=== PATIENT | female | born 1980 | race Caucasian/White ===

== ENCOUNTER 2024-06-29 13:37 | Observation (INO) ==
--- NOTE | 2024-06-29 13:51 | Emergency Department Note ---
Impression & Plan Hypertensive urgency, Chest pain, SOB (shortness of breath), Headache ED Provider Note CHIEF COMPLAINT: High blood pressure HISTORY OF PRESENTING ILLNESS: This 43-year-old female patient presents to the emergency department for evaluation of elevated blood pressure. The patient states that she woke up at 4 AM with a headache. She then developed a nosebleed. She was able to get the nosebleed to stop on her own. She continued with a headache, but was still able to go to work. While at work she developed dizziness, shortness of breath, and chest pain/heaviness along with the headache. She was also having some intermittent blurry vision behind the right eye. There is a lot of pressure behind her eyes from the headache as well. She checked her blood pressure and it was 188/110. She checked her blood pressure a couple of other times and it was still significantly elevated. She then left work to come to the ER. She denies any previous personal cardiac history. She had some high blood pressure from stress while from her , but no longer on medication. The patient has a history of MTHFR and had to be on aspirin during her . She is not currently on any aspirin or blood thinners. She is currently on Mirena and does not normally get her periods, but she did start spotting yesterday. She is sexually active right now. Not using any protection other than the Mirena. She denies any concerns for STIs. She has a family history of MIs - maternal grandmother with [place] and CHF, paternal grandmother with HTN and DM, mother with HTN and hypothyroidism. The patient denies any tobacco use or vaping. No problems with her cholesterol per patient. No personal history of diabetes. REVIEW OF SYSTEMS: See HPI for pertinent positives and pertinent negatives. ALLERGIES: NKDA MEDICATIONS: Lexapro 10 mg, Prazosin 2 mg, Mirena PAST MEDICAL HISTORY: Anxiety, Nightmares, Heavy periods, MTHFR PHYSICAL EXAM: VITALS: Vitals are noted on the nurse's note and reviewed by myself. GENERAL: No acute distress, non-diaphoretic. SKIN: Capillary reflex less than 2 seconds. HEAD: No scalp tenderness. No step-offs felt. EARS: Bilateral external auditory canals clear. Bilateral tympanic membranes pearly graham without erythema or effusion. No hemotympanum. No salinas sign. No mastoid tenderness. EYES: Pupils equal round and reactive to light and accommodation. Conjunctivae without injection, sclerae without icterus. Extraocular movements intact without pain. No nystagmus. NOSE: Patent, turbinates without inflammation or discharge. No sinus tenderness. No septal hematoma or bleeding. FACE: No facial bone tenderness. Full range of motion of the jaw without tenderness. No facial droop. MOUTH: Mucous membranes moist. Uvula midline. Airway patent. Tongue does not deviate. NECK: Supple without nuchal rigidity. Cervical spine is nontender. Full range of motion of the neck without tenderness and normal strength. HEART: Regular rate and rhythm without murmurs gallops or rubs. LUNGS: Clear to auscultation bilaterally without wheezes, rales or rhonchi. No retractions or accessory muscle use. No chest wall tenderness. ABDOMEN: Positive bowel sounds x 4. Normal tympanic percussion. Soft, nontender to palpation. No masses or hepatosplenomegaly. No guarding or rebound tenderness. No focal RLQ or LLQ tenderness. MUSCULOSKELETAL: Full range of motion of the bilateral upper and lower extremities. Strength 5/5 and equal bilaterally in the upper and lower extremities. Peripheral pulses 2+. NEURO: Patient was alert and oriented to person place and time. Normal mental status exam. Normal sensation to light and sharp touch. No focal neurological deficits. DIFFERENTIAL DIAGNOSIS: The differential diagnosis includes acute intracranial bleed, CVA, postural headache, meningitis, encephalitis, mass or mass effect, sinusitis, infection, temporal arteritis, trigeminal neuralgia, pseudotumor cerebri, tension headache, cluster headache, carbon monoxide exposure, migraine, angina, [place], pericarditis, myocarditis, aortic dissection, pleurisy, pneumothorax, PE, pneumonia, pneumomediastinum, esophagitis, esophageal spasm, GERD, perforated esophagus, perforated duodenal/gastric ulcer, pancreatitis, cholecystitis, costochondritis, musculoskeletal, bronchitis, URI, or others. ED COURSE AND MEDICAL DECISION MAKING: MEDICATIONS GIVEN: 1 L normal saline solution bolus. Tylenol 1000 mg IV. Labetalol 10 mg IV. MONITOR: Continuous monitoring engineer: Order was placed for continuous monitoring engineer. Patient was placed on the monitoring engineer and continuous pulse ox. Patient was noted to be in normal sinus rhythm at an initial rate of 80 bpm per my interpretation. EKG: EKG was interpreted by myself and Dr. Mccallum as normal sinus rhythm at 67 bpm with a left bundle branch block and some ST changes in V1, V2, and V3, but not meeting Sgarbossa criteria for acute [place] or STEMI at this time. The patient does not have any previous EKGs to compare. Repeat EKG was interpreted by myself and Dr. Mccallum and shows normal sinus rhythm at 67 bpm with the left bundle branch block, but no changes from her previous EKG. A third repeat EKG when the patient developed symptoms again was interpreted by myself and shows normal sinus rhythm at 68 bpm with the left bundle branch block, but no acute changes from her previous EKGs. INTERPRETATION OF LABS: I interpreted the labs with full lab results as below in the lab section of this note. Laboratory results pertinent to the emergent complaint are discussed in the MDM section below. The patient was advised to follow up with their PCP and/or specialist(s) for further outpatient monitoring and management of any abnormal results. INTERPRETATION OF IMAGING: Imaging studies were interpreted by myself and read by radiology as per the imaging section of this note. The patient was advised to follow up with their PCP and/or specialist(s) for further outpatient management of any non-emergent abnormal findings. CT scan of the head without contrast was negative for acute intracranial abnormality. CTA of the head and neck with IV contrast shows no evidence for hemorrhage, mass, aneurysm, dissection, stenosis, or other acute abnormalities. There is mild calcified plaque within the proximal left internal carotid artery without stenosis. There are also several small thyroid nodules and the patient was advised to follow-up with her PCP in regards to the thyroid nodules. CTA of the chest with dissection protocol showed no evidence for aortic dissection or other intrathoracic findings. No obvious PE noted. No consolidation or pneumonia. There are multiple small pulmonary nodules measuring up to 3 mm which are likely benign. Repeat CT scan of the chest in 6 months recommended to ensure stability. The patient was advised to have this done by her PCP as an outpatient. CONSULTATIONS: Dr. Jones of cardiology. On-call hospitalist. MDM SUMMARY: I examined the patient. The patient was woken up from sleep at 4 AM with a headache followed by a nosebleed. She then developed dizziness, chest pain, and shortness of breath while at work. Her blood pressure was checked and was significantly elevated and she presented to the ER. The patient is continuing to complain of the same symptoms and her blood pressure was elevated at 180/106 in triage. An IV lock was placed and labs were drawn. I immediately discussed this case with Dr. Mccallum given the patient's history, exam, vital signs, and EKG findings of the left bundle branch block with no previous EKG to compare. We do not suspect acute [place] at this time given her presentation and EKG not meeting Sgarbossa criteria. The patient was emergently sent down to CT scan for the CT scan of the head, CTA of the head and neck, and CTA of the chest with dissection protocol. These imaging studies were as above with no acute abnormalities. The patient was advised to follow-up with her PCP for the nonemergent findings. A repeat EKG once the patient came back from CT scan showed the same left bundle branch block with no changes from her previous EKG. White blood cell count normal at 8.27. Hemoglobin normal at 14. Platelet count normal at 264. Coags were normal. Total bilirubin elevated at 1.4, but CMP otherwise normal. Magnesium normal. TSH normal. Lipase normal. Serum hCG negative. High- sensitivity troponin x 2 were normal. Lyme disease screen negative. The patient's urinalysis with positive nitrites and 4+ bacteria, but otherwise negative. The patient denies any urinary symptoms. Can consider waiting for urine culture results. The patient had initially been given 1 L normal saline solution bolus and Tylenol 1000 mg IV with improvement of her symptoms, but not resolution. Aspirin was initially held due to the concern of a possible dissection. The patient was given labetalol 10 mg IV with improvement of her blood pressure and improvement of her symptoms, but then her blood pressure did increase again. The patient had some episodes of tachycardia intermittently. A repeat EKG when she was having increased pressure in her chest and shortness of breath with the episode of tachycardia did not capture the episode of tachycardia, but showed the same left bundle branch block with no changes compared to her previous EKGs. I discussed the case again with Dr. Mccallum and we feel the patient requires admission for likely hypertensive urgency causing her symptoms. She will need further cardiac workup and possible MRI/MRV for further evaluation of her symptoms pending her clinical course. After speaking with the on-call hospitalist, I also spoke with Dr. Jones of cardiology. He feels the patient's symptoms are likely secondary to hypertensive urgency and he recommended good control of her blood pressure and echocardiogram to evaluate for cardiomyopathy or other etiology. The patient was given a copy of her EKGs to keep with her to take to medical appointments for comparison in the future because of the left bundle branch block. The hospitalist agreed to admit the patient for further evaluation and treatment. Please refer to their dictation for further details. The patient's care was transferred in stable condition. DIAGNOSIS: Hypertensive urgency Headache Chest pain Shortness of breath Past Med/Surg History Problem List (Updated 06/29/24 @ 22:23 by Lola Brumfield PA-C) Headache (Acute) SOB (shortness of breath) (Acute) Chest pain (Acute) Hypertensive urgency (Acute) Lipoma of left thigh Medical History (Updated 06/29/24 @ 22:23 by Lola Brumfield PA-C) Anxiety History of nightmares Surgical History H/O dilation and curettage 2012 and 2016 H/O wisdom tooth extraction Family History (Updated 12/28/23 @ 11:20 by Angel Pineda LPN) Mother Hypertension Hypothyroidism Grandmother (Maternal) Hypertension Hypothyroidism Coronary heart disease Grandfather (Maternal) Emphysema lung Black lung Grandmother (Paternal) Diabetes Grandfather (Paternal) Prostate cancer Aunt Ovarian cancer Uncle Prostate cancer Social History (Updated 12/28/23 @ 11:15 by Angel Pineda LPN) Smoking Status: Never smoker Do You Dip or Chew Tobacco: No; Hx Alcohol Use: No Hx Substance Use: No Preferred Language: Slovak Communication Ability: Effective Psychiatric Clinical Nurse Specialist Required: No Beliefs That Will Affect Care: None Current Living Situation: Family Other Information That Helps Us Care for You: No Feels Safe at Home: Yes Safety Concerns: Feels Safe At This Time Sunscreen Use: Yes Assistive Devices: None Allergies Allergies Allergy/AdvReac Type Severity Reaction Status Date / Time No Known Allergies Allergy Verified 06/29/24 15:46 Home Meds Home Medications Medication Instructions Recorded Confirmed multivitamin 1 tab PO DAILY 12/28/23 06/29/24 prazosin 2 mg capsule 2 mg PO HS 12/28/23 06/29/24 escitalopram oxalate 10 mg tablet 10 mg PO HS 03/22/24 06/29/24 (Lexapro) oseltamivir 75 mg capsule 75 mg PO DAILY 06/29/24 06/29/24 Results & Data (ED) Vital Signs Vital Signs - 24 hr 06/29/24 13:44 06/29/24 13:59 06/29/24 14:10 Temperature 36.6 C Temperature Source Temporal Artery Scan Pulse Rate 84 77 Pulse Rate [Apical] 88 Respiratory Rate 16 17 Respiratory Effort / Characteristics Non-Labored Spontaneous Respiratory Depth Normal Respiratory Pattern Regular Blood Pressure 180/106 H Blood Pressure [Left Arm] 173/109 H Blood Pressure Mean 130 Blood Pressure Mean [Left Arm] 130 Pulse Oximetry 97 100 Oxygen Delivery Method Room Air Room Air Sepsis Recent Fever Within 48 Hours No Sepsis New/Unexplained Change in Mental Status No Sepsis Action Taken by Nursing No Action Required 06/29/24 15:11 06/29/24 15:58 06/29/24 15:59 Temperature Temperature Source Pulse Rate 79 76 Pulse Rate [Apical] 80 Respiratory Rate 17 18 Respiratory Effort / Characteristics Non-Labored Spontaneous Respiratory Depth Normal Respiratory Pattern Regular Blood Pressure 160/86 H Blood Pressure [Left Arm] 160/86 H Blood Pressure Mean Blood Pressure Mean [Left Arm] 110 Pulse Oximetry 100 100 Oxygen Delivery Method Room Air Room Air Sepsis Recent Fever Within 48 Hours Sepsis New/Unexplained Change in Mental Status Sepsis Action Taken by Nursing 06/29/24 16:30 06/29/24 16:30 Temperature Temperature Source Pulse Rate 73 Pulse Rate [Apical] 73 Respiratory Rate 18 Respiratory Effort / Characteristics Respiratory Depth Respiratory Pattern Blood Pressure 148/105 H Blood Pressure [Left Arm] 148/105 H Blood Pressure Mean Blood Pressure Mean [Left Arm] 119 Pulse Oximetry 100 Oxygen Delivery Method Room Air Sepsis Recent Fever Within 48 Hours Sepsis New/Unexplained Change in Mental Status Sepsis Action Taken by Nursing Laboratory Data 06/29/24 14:23 06/29/24 14:23 Lab Results 06/29/24 06/29/24 Range/Units 14:23 15:27 WBC 8.27 (4.8-10.8) K/ul RBC 4.80 (4.20-5.40) M/uL Hgb 14.0 (12.0-16.0) g/dl Hct 40.8 (37.0-47.0) % MCV 85.0 (80.0-100.0) fL MCH 29.2 (25.0-34.0) pg MCHC 34.3 (32.0-36.0) g/dL RDW Std Deviation 39.7 (36.4-46.3) fL RDW Coeff of Mere 12.7 (11.5-14.5) % Plt Count 264 (130-400) K/uL MPV 10.0 (9.4-12.4) fL Immature Gran % (Auto) 0.4 % Neut % (Auto) 69.1 % Lymph % (Auto) 20.0 % [place] % (Auto) 8.7 % Eos % (Auto) 1.3 % Baso % (Auto) 0.5 % Neut # (Auto) 5.72 (1.40-6.50) K/uL Lymph # (Auto) 1.65 (1.20-3.40) K/uL [place] # (Auto) 0.72 H (0.11-0.59) K/uL Eos # (Auto) 0.11 (0.00-0.50) K/uL Baso # (Auto) 0.04 (0.00-0.20) K/uL Immature Gran # (Auto) 0.03 (0.01-0.20) K/uL PT Cancelled 11.2 INR Cancelled 1.0 APTT Cancelled 30 PTT Ratio Cancelled 1.1 Sodium 136 (136-145) mmol/L Potassium 3.7 (3.5-5.1) mmol/L Chloride 103 (98-107) mmol/L Carbon Dioxide 26 (21-32) mmol/L Anion Gap 7 (3-11) BUN 14 (6-23) mg/dl Creatinine 0.75 (0.6-1.2) mg/dl Est Cr Clr Drug Dosing 81.8 ml/min eGFR 99.99 BUN/Creatinine Ratio 18.7 (10-20) Glucose 99 (70-99(Fasting)) mg/dl Calcium 9.5 (8.6-10.3) mg/dl Magnesium 2.2 (1.7-2.4) mg/dl Total Bilirubin 1.4 H (0.2-1.0) mg/dl AST 13 (13-39) U/L ALT 10 (7-52) U/L Alkaline Phosphatase 37 (34-104) U/L Troponin I High Sens < 2.3 < 2.3 (0-14) pg/ml Total Protein 7.3 (6.0-8.3) gm/dl Albumin 4.5 (3.4-5.0) gm/dl Globulin 2.8 (2.5-4.0) gm/dl Albumin/Globulin Ratio 1.6 (0.9-2) Lipase 12 (11-82) U/L TSH 1.078 (0.300-4.500) uIu/ml HCG, Qual Negative (Negative) Urine Color Yellow Urine Appearance Clear (Clear) Urine pH 5.5 (4.5-7.5) Ur Specific [place] 1.009 (1.000-1.030) Urine Protein Negative (Negative) Urine Glucose (UA) Negative (Negative) Urine Ketones Trace H (Negative) Urine Blood Negative (Negative) Urine Nitrite Positive A (Negative) Urine Bilirubin Negative (Negative) Urine Urobilinogen Negative (Negative) Ur Leukocyte Esterase Negative (Negative) Urine WBC (Auto) 0-5 (0-5) /hpf Urine RBC (Auto) 0-2 (0-2) /hpf U Hyaline Cast (Auto) 0-2 (0-2) /lpf U Epithel Cells (Auto) 0-2 (0-2) /hpf Urine Bacteria (Auto) 4+ H (None Seen) Lyme Disease Screen Negative (Negative) Administered Medications Escitalopram Oxalate (Escitalopram Oxalate 10 Mg Tab) 10 mg PO HS DREA Stop: 07/29/24 20:59 Last Admin: 06/29/24 20:39 Dose: 10 mg Documented By: SHANTAL Ceftriaxone Sodium (Rocephin) 1,000 mg in 50 mls @ 100 mls/hr IV Q24H DREA Stop: 07/04/24 18:59 Last Admin: 06/29/24 20:38 Dose: 100 mls/hr Documented By: SHANTAL Metoprolol Succinate (Metoprolol Succ 25mg Ext Rel Tab) 12.5 mg PO QAM DREA Stop: 07/29/24 16:59 Last Admin: 06/29/24 17:49 Dose: 12.5 mg Documented By: Prazosin HCl (Prazosin Hcl 1 Mg Cap) 2 mg PO HS DREA Stop: 07/29/24 20:59 Last Admin: 06/29/24 20:38 Dose: 2 mg Documented By: SHANTAL Discontinued Medications Sodium Chloride (Nss) 1,000 mls @ 999 mls/hr IV .Q1H1M ONE Stop: 06/29/24 15:07 Last Infusion: 06/29/24 18:19 Dose: Infused Documented By: Admin: 06/29/24 15:18 Dose: 999 mls/hr Documented By: DEMARIO Acetaminophen (Ofirmev) 1,000 mg in 100 mls @ 400 mls/hr IV NOW STA Stop: 06/29/24 14:21 Last Infusion: 06/29/24 15:59 Dose: Infused Documented By: Admin: 06/29/24 15:18 Dose: 400 mls/hr Documented By: DEMARIO Ioversol (Optiray 320 125ml) 115 ml IV ONCE ONE Stop: 06/29/24 14:41 Last Admin: 06/29/24 14:44 Dose: 115 ml Documented By: JANINE Labetalol HCl (Labetalol Hcl Iv 5 Mg/Ml 20ml) 10 mg IV NOW STA Stop: 06/29/24 15:43 Last Admin: 06/29/24 15:59 Dose: 10 mg Documented By: Lisinopril (Lisinopril 2.5 Mg Tab) 2.5 mg PO NOW STA Stop: 06/29/24 17:01 Last Admin: 06/29/24 17:51 Dose: 2.5 mg Documented By: MR Imaging Data Radiologist's Impression: Chest CTA 06/29/24 14:07 CT ANGIOGRAPHY OF THE CHEST DISSECTION PROTOCOL CLINICAL HISTORY: Chest pain, SOB, HTN COMPARISON STUDY: No previous studies for comparison. TECHNIQUE: Before and following the IV administration of 115 mL of Optiray, helical axial images of the chest were obtained. Maximal intensity projections and sagittal and coronal reformats were viewed on an independent 3D workstation. IV contrast was administered without complication. Automated exposure control was utilized for the study. A dose lowering technique was utilized adhering to the principles of ALARA. CT DOSE: 1554.94 mGy.cm FINDINGS: Caliber of the thoracic aorta is normal. There is no thoracic aortic dissection or intramural hematoma. Size of the heart is normal. There are no pulmonary emboli. There is no pericardial effusion. No enlarged axillary, mediastinal or hilar lymph nodes are present. There is no pneumothorax or pleural effusion. There is no consolidation to suggest pneumonia. Numerous small noncalcified solid pulmonary nodules measure up to 3 mm. The largest is within the right upper lobe on image 53 of 253. Subpleural biapical densities represents scarring. Visualized portions of the upper abdomen are unremarkable. IMPRESSION: 1. No thoracic aortic dissection. 2. No acute intrathoracic findings. 3. Multiple small pulmonary nodules measuring up to 3 mm. These are likely benign. A chest CT in 6 months to ensure stability is recommended. ACT 112: Negative or not required by law. Electronically signed by: Boris Castellanos M.D. 06/29/2024 3:[address] 06/29/24 14:07 CT head/brain wo con CLINICAL HISTORY: Headache, dizziness, HTN, vision change R. TECHNIQUE: Multiple axial CT images of the head were obtained without contrast. Sagittal and coronal reconstructions were done. A dose lowering technique was utilized adhering to the principles of ALARA. CT DOSE: 1554.94mGy*cm COMPARISON: None FINDINGS: There is no intra-axial or extra-axial fluid collection, hemorrhage, or mass. The ventricles and sulci are age-appropriate with no midline shift. There is no evidence of a territorial infarction. The bone windows are negative. IMPRESSION: Negative noncontrasted CT ACT 112: Negative or not required by law. The above report was generated using voice recognition software. It may contain grammatical, syntax or spelling errors. Electronically signed by: Donna Andujar M.D. 06/29/2024 2:59 PM Head CTA 06/29/24 14:07 CTA ANGIOGRAPHY OF THE HEAD CLINICAL HISTORY: Headache, dizziness, HTN, vision change R COMPARISON STUDY: No previous studies for comparison. TECHNIQUE: Helical axial images of the head were obtained following uneventful intravenous administration of 115 cc of Optiray. Sagittal and coronal reconstructions were viewed as well as maximal intensity projections on an independent 3-D workstation. Automated exposure control was utilized for the study. A dose lowering technique was utilized adhering to the principles of ALARA. FINDINGS: No acute intracranial hemorrhage, midline shift or mass effect is present. Ventricular system is normal. Basal cisterns are patent. There are no extra-axial collections. The bilateral M1, M2, A1 and A2 segments are patent. No intracranial aneurysm is identified. The posterior circulation is intact. The left vertebral artery is dominant. The basilar artery and bilateral posterior cerebral arteries are patent. IMPRESSION: Unremarkable CTA of the head. ACT 112: Negative or not required by law. Electronically signed by: Boris Castellanos M.D. 06/29/2024 3:06 PM Neck CTA 06/29/24 14:07 CT ANGIOGRAPHY OF THE NECK WITH CONTRAST CLINICAL HISTORY: Headache, dizziness, HTN, vision change R COMPARISON STUDY: No previous studies for comparison. Technique: CT angiography of the carotid and vertebral arteries was obtained using Optiray and 3D reconstruction on an independent workstation. NASCET criteria was utilized. Automated exposure control was utilized for the study. A dose lowering technique was utilized adhering to the principles of ALARA. Findings: Chest CT will be reported separately. The bilateral common carotid, cervical internal carotid and vertebral arteries are patent. There is no stenosis, aneurysm or dissection within the neck. There is mild calcified plaque within the proximal left internal carotid artery without stenosis. There are several small thyroid nodules. There is no cervical lymphadenopathy. There are no cervical spine fractures. IMPRESSION: No stenosis or dissection within the bilateral common carotid, cervical internal carotid or vertebral arteries. ACT 112: Negative or not required by law. Electronically signed by: Boris Castellanos M.D. 06/29/2024 3:02 PM Discharge Plan Visit Data Chief Complaint: Hypertension Stated Complaint: HIGH BP, 188/110 ED Provider: Aldair Mccallum ED Midlevel Provider: Lola Brumfield Discharge Problem: Hypertensive urgency, Chest pain, SOB (shortness of breath), Headache Patient Disposition: Admitted As Inpatient Condition: Good Discharge Instructions Interventions: ED Discharge Assessment Last Done: 06/29/24 18:20 Discharge Problem: Chest pain Qualifiers: Chest pain type: unspecified Qualified Code(s): R07.9 - Chest pain, unspecified Headache Qualifiers: Headache type: unspecified Headache chronicity pattern: acute headache I ntractability: not intractable Qualified Code(s): R51.9 - Headache, unspecified
[2024-06-29] MEDS: OPTIRAY 320 125ml IV ONE (14:44)
[2024-06-29 14:45] LABS: Basophils # (auto) 0.04 K/uL (0.00-0.20); Basophils % (auto) 0.5 %; Eosinophils # (auto) 0.11 K/uL (0.00-0.50); Eosinophils % (auto) 1.3 %; Hematocrit (blood only) 40.8 % (37.0-47.0); Immature Granulocytes # (auto) 0.03 K/uL (0.01-0.20); Immature Granulocytes % (auto) 0.4 %; Lymphocytes # (auto) 1.65 K/uL (1.20-3.40); Mean Corpuscular Hemoglobin 29.2 pg (25.0-34.0); Mean Corpuscular Hgb Conc 34.3 g/dL (32.0-36.0); Monocytes # (auto) 0.72 K/uL (0.11-0.59); Monocytes % (auto) 8.7 %; Neutrophils # (auto) 5.72 K/uL (1.40-6.50); Neutrophils % (auto) 69.1 %; Platelet Count 264 K/uL (130-400); RDW Coefficient of Variation 12.7 % (11.5-14.5); RDW Standard Deviation 39.7 fL (36.4-46.3); White Blood Count 8.27 K/ul (4.8-10.8)
[2024-06-29 14:58] LABS: Alanine Aminotransferase 10 U/L (7-52); Albumin Globulin Ratio 1.6 (0.9-2); Albumin Level 4.5 gm/dl (3.4-5.0); Alkaline Phosphatase 37 U/L (34-104); Anion Gap 7 (3-11); Aspartate Aminotransferase 13 U/L (13-39); BUN Creatinine Ratio 18.7 (10-20); Bilirubin,Total 1.4 mg/dl (0.2-1.0); Blood Urea Nitrogen 14 mg/dl (6-23); Calcium 9.5 mg/dl (8.6-10.3); Carbon Dioxide 26 mmol/L (21-32); Chloride 103 mmol/L (98-107); Creatinine Clr Calc Pharmacy 81.8 ml/min; Globulin 2.8 gm/dl (2.5-4.0); Glucose 99 mg/dl (70-99(Fasting)); Lipase 12 U/L (11-82); Magnesium 2.2 mg/dl (1.7-2.4); Potassium 3.7 mmol/L (3.5-5.1); Sodium 136 mmol/L (136-145); Total Protein 7.3 gm/dl (6.0-8.3)
--- NOTE | 2024-06-29 15:01 | CT Scan Report ---
CT head/brain wo con CLINICAL HISTORY: Headache, dizziness, HTN, vision change R. TECHNIQUE: Multiple axial CT images of the head were obtained without contrast. Sagittal and coronal reconstructions were done. A dose lowering technique was utilized adhering to the principles of ELLEN Weiss. CT DOSE: 1554.94mGy*cm COMPARISON: None FINDINGS: There is no intra-axial or extra-axial fluid collection, hemorrhage, or mass. The ventricle s and sulci are age-appropriate with no midline shift. There is no evidence of a territorial infarcti on. The bone windows are negative. IMPRESSION: Negative noncontrasted CT ACT 112: Negative or not required by law. The above report was generated using voice recognition software. It may contain grammatical, syntax o r spelling errors. Electronically signed by: Donna Andujar M.D. 06/29/2024 2:59 PM
[2024-06-29 15:04] LABS: Appearance Urine Clear (Clear); Bacteria Urine Automated 4+ (None Seen); Bilirubin Urine Negative (Negative); Blood Urine Negative (Negative); Cast Urine Automated 0-2 /lpf (0-2); Color Urine Yellow; Epithelial Cell Urine Auto 0-2 /hpf (0-2); Glucose Urine UA Negative (Negative); Ketones Urine Trace (Negative); Leukocyte Esterase Urine Negative (Negative); Nitrite Urine Positive (Negative); Protein Urine Negative (Negative); RBC Urine Automated 0-2 /hpf (0-2); Specific Gravity Urine 1.009 (1.000-1.030); Urobilinogen Urine Negative (Negative); WBC Urine Automated 0-5 /hpf (0-5); pH Urine 5.5 (4.5-7.5)
--- NOTE | 2024-06-29 15:04 | CT Scan Report ---
CT ANGIOGRAPHY OF THE NECK WITH CONTRAST CLINICAL HISTORY: Headache, dizziness, HTN, vision change R COMPARISON STUDY: No previous studies for comparison. Technique: CT angiography of the carotid and vertebral arteries was obtained using Optiray and 3D rec onstruction on an independent workstation. NASCET criteria was utilized. Automated exposure control was utilized for the study. A dose lowering technique was utilized adhering to the principles of ALA RA. Findings: Chest CT will be reported separately. The bilateral common carotid, cervical internal carot id and vertebral arteries are patent. There is no stenosis, aneurysm or dissection within the neck. T here is mild calcified plaque within the proximal left internal carotid artery without stenosis. Ther e are several small thyroid nodules. There is no cervical lymphadenopathy. There are no cervical spin e fractures. IMPRESSION: No stenosis or dissection within the bilateral common carotid, cervical internal carotid or vertebral arteries. ACT 112: Negative or not required by law. Electronically signed by: Boris Castellanos M.D. 06/29/2024 3:02 PM
[2024-06-29 15:05] LABS: Troponin I High Sensitivity < 2.3 pg/ml (0-14)
--- NOTE | 2024-06-29 15:07 | CT Scan Report ---
CTA ANGIOGRAPHY OF THE HEAD CLINICAL HISTORY: Headache, dizziness, HTN, vision change R COMPARISON STUDY: No previous studies for comparison. TECHNIQUE: Helical axial images of the head were obtained following uneventful intravenous administr ation of 115 cc of Optiray. Sagittal and coronal reconstructions were viewed as well as maximal inten sity projections on an independent 3-D workstation. Automated exposure control was utilized for the study. A dose lowering technique was utilized adhering to the principles of ALARA. FINDINGS: No acute intracranial hemorrhage, midline shift or mass effect is present. Ventricular syst em is normal. Basal cisterns are patent. There are no extra-axial collections. The bilateral M1, M2, A1 and A2 segments are patent. No intracranial aneurysm is identified. The posterior circulation is i ntact. The left vertebral artery is dominant. The basilar artery and bilateral posterior cerebral art eries are patent. IMPRESSION: Unremarkable CTA of the head. ACT 112: Negative or not required by law. Electronically signed by: Boris Castellanos M.D. 06/29/2024 3:06 PM
[2024-06-29 15:08] LABS: Pregnancy Test, Serum Negative (Negative)
[2024-06-29 15:13] LABS: Thyroid Stimulating Hormone 1.078 uIu/ml (0.300-4.500)
[2024-06-29] MEDS: ACETAMINOPHEN 1,000 MG/100 ML VIAL IV STA (15:18)
[2024-06-29] MEDS: SODIUM CHLORIDE 0.9% 1,000 ML IV ONE (15:18)
--- NOTE | 2024-06-29 15:18 | CT Scan Report ---
CT ANGIOGRAPHY OF THE CHEST DISSECTION PROTOCOL CLINICAL HISTORY: Chest pain, SOB, HTN COMPARISON STUDY: No previous studies for comparison. TECHNIQUE: Before and following the IV administration of 115 mL of Optiray, helical axial images of t he chest were obtained. Maximal intensity projections and sagittal and coronal reformats were viewed on an independent 3D workstation. IV contrast was administered without complication. Automated exp osure control was utilized for the study. A dose lowering technique was utilized adhering to the mac Patel. CT DOSE: 1554.94 mGy.cm FINDINGS: Caliber of the thoracic aorta is normal. There is no thoracic aortic dissection or intramu ral hematoma. Size of the heart is normal. There are no pulmonary emboli. There is no pericardial eff usion. No enlarged axillary, mediastinal or hilar lymph nodes are present. There is no pneumothorax o r pleural effusion. There is no consolidation to suggest pneumonia. Numerous small noncalcified solid pulmonary nodules measure up to 3 mm. The largest is within the right upper lobe on image 53 of 253. Subpleural biapical densities represents scarring. Visualized portions of the upper abdomen are unre markable. IMPRESSION: 1. No thoracic aortic dissection. 2. No acute intrathoracic findings. 3. Multiple small pulmonary nodules measuring up to 3 mm. These are likely benign. A chest CT in 6 mo nths to ensure stability is recommended. ACT 112: Negative or not required by law. Electronically signed by: Boris Castellanos M.D. 06/29/2024 3:16 PM
[2024-06-29] MEDS: LABETALOL HCL IV 5 MG/ML 20ML IV STA (15:59)
[2024-06-29 16:09] LABS: Partial Thromboplastin Ratio 1.1; Partial Thromboplastin Time 30 Seconds (21-31); Prothrombin Time 11.2 Seconds (9.0-12.0)
--- NOTE | 2024-06-29 16:36 | History & Physical Report ---
Date of Service June 29, 2024 Assessment & Plan (1) Hypertensive urgency: (2) Anxiety: Plan Ms. Nichols is a 43 year old woman with past medical history remarkable for anxiety, PTSD, MTHFR presented to [facility] ED due to severe headache and nosebleed this am and admitted for hypertensive urgency. Patient with LBBB and elevated systolics to 180s and diastolics to 110 #Hypertensive Urgency #Atypical chest pain CTA head/neck/chest without dissection HCG negative, TSH wNL No signs of end organ damage at this time s/p Labetolol x 1 Order lisinopril 2.5mg now with 12.5 metoprolol now Start lisinopril 5mg in am with 12.5 metoprolol XL ECHO ordered Monitor on tele Trop negative x 2, repeat one more for completeness ekg for chest pain PRN labetolol for BP >180 #Acute cystitis UA nitrite + bacteria 4+ vague symptoms plan 3 days CTX #Anxitey #PTSD resume home meds DVT ppx lovenox Admit to PCU for htn urgency for close bp monitoring and IV management prn Admission and Anticipated Discharge Date Admission Date: Time spent evaluating patient, direct bedside care, chart review, placing orders, interpretation of diagnostic studies, discussion with consultants, patient, and family members, as well as other required patient management activities is 75 minutes. History of Present Illness Chief Complaint: Headache Primary Care Provider: Jae London Ms. Nichols is a 43 year old woman with past medical history remarkable for anxiety, PTSD, MTHFR gene presented to [facility] ED due to severe headache and nosebleed this am. Patient reports being in usual state of health until this morning when she felt a diffuse headache. She noted blood on her face from a nose bleed as well. She states that she went to work regardless--during her day she noted the headache return and a colleague took her blood pressure multiple times, ranging from 160s-180s, prompting patient to present to ED. She states that she had high blood pressure episodes years ago given interpersonal stressors, but she reports she is very active and without any extreme stressors at this time. She even states that during a recent procedure her pressures were normal. Review of those records note that her BP was in the 140s. She states at this time the headache and dizziness have resolved, but she is experiencing dyspnea at this time. Patient reports no tobacco history, no significant etoh, or other illicit substance use. She uses Mirena for her cycle, which helps her menstrual headaches, noting that this headache was different intensity and character. Patient reports maternal/paternal grandmothers with HTN and [place] hx, as well as mother with HTN as well. In the ED, vitals were notable for BP of 180/106, HR of 70-80s, and O2 sat of room air. Imaging revealed CTA with out dissection/bleed in head/neck, and no aortic dissection in CT; however, multiple pulm nodules noted EKG with LBBB ED interventions: 1L, 1gm Tylenol, Labetolol 10mg IV x 1 Patient to be admitted to PCU/tele for further evaluation and management of hypertensive urgency Allergies Allergy/AdvReac Type Severity Reaction Status Date / Time No Known Allergies Allergy Verified 06/29/24 15:46 Home Medications Medication Instructions Recorded Confirmed Type multivitamin 1 tab PO DAILY 12/28/23 06/29/24 History prazosin 2 mg capsule 2 mg PO HS 12/28/23 06/29/24 History escitalopram oxalate 10 mg tablet 10 mg PO HS 03/22/24 06/29/24 History (Lexapro) oseltamivir 75 mg capsule 75 mg PO DAILY 06/29/24 06/29/24 History Past Med/Surg History Problem List (Updated 06/29/24 @ 17:41 by Irish Lancaster MD) Hypertensive urgency Lipoma of left thigh Medical History (Updated 06/29/24 @ 17:41 by Irish Lancaster MD) Anxiety History of nightmares Surgical History H/O dilation and curettage 2012 and 2016 H/O wisdom tooth extraction Family History (Updated 12/28/23 @ 11:20 by Angel Pineda LPN) Mother Hypertension Hypothyroidism Grandmother (Maternal) Hypertension Hypothyroidism Coronary heart disease Grandfather (Maternal) Emphysema lung Black lung Grandmother (Paternal) Diabetes Grandfather (Paternal) Prostate cancer Aunt Ovarian cancer Uncle Prostate cancer Social History (Updated 12/28/23 @ 11:15 by Angel Pineda LPN) Smoking Status: Never smoker Do You Dip or Chew Tobacco: No; Hx Alcohol Use: No Hx Substance Use: No Preferred Language: Lao Communication Ability: Effective Equipment Scheduler Required: No Beliefs That Will Affect Care: None Current Living Situation: Family Feels Safe at Home: Yes Sunscreen Use: Yes Assistive Devices: Contacts and Glasses Review of Systems Review of Systems: Constitutional: (-) fever/chills, (-) recent loss of weight, (-) appetite changes, (-) night sweats. Head: (+) headache, (-) dizziness. Eye: (-) blurring of vision, (-) double vision, (-) redness. Ear: (-) hearing loss, (-) discharge, (-) vertigo Nose: (-) discharge, (-) bleeding, (-) congestion, (-) post nasal drip. Throat: (-) sore throat, (-) hoarseness of voice, (-) odynophagia. Cardiovascular: (+) chest pain, (-) palpitations, (-) syncope, (-) orthopnea, (- ) PND, (-) leg swelling. Respiratory: (+) shortness of breath, (-) cough, (-) wheezing, (-) hemoptysis. Neuro: (-) weakness in extremities, (-) numbness, (-) tingling, (-) tremor. Gastrointestinal: (-) belly pain, (-) belly distension, (-) nausea, (-) vomiting, (-) diarrhea, (-) constipation, (-) na, (-) hematemesis, (-) hematochezia, (-) bowel incontinence Genitourinary: (-) hematuria, (-) dysuria, (-) polyuria, (-) hesitancy, (-) frequency, (-) urinary incontinence. Musculoskeletal: (-) myalgia, (-) arthralgia. Skin: (-) rashes. Endocrine: (-) heat/cold intolerance. Psychiatry: (-) depression, (-) hallucination. Physical Exam Physical Exam: GENERAL APPEARANCE: AxOx4, generally well-appearing F, no acute distress. HEENT: NC, AT. MMM. EOMI, clear conjunctiva, oropharynx clear. NECK: Supple without lymphadenopathy. No stiffness or restricted ROM. HEART: Normal rate and regular rhythm, normal S1/S1,?systolic murmur 1+ LUNGS: CTAB, moving air well. No crackles or wheezes are heard. ABDOMEN: Soft, nontender, nondistended with good bowel sounds heard. BACK: No CVAT, no obvious deformity. EXTREMITIES: Without cyanosis, clubbing or edema. NEUROLOGICAL: Grossly nonfocal. Alert and oriented, moving all 4 extremities. CN not formally tested but appear grossly intact. Skin: Warm and dry without any rash. Results & Data Results & Data Vital Signs (Past 12 Hours) Vital Signs Temp Pulse Pulse Resp BP BP Pulse Ox 06/29/24 15:59 76 160/86 H 06/29/24 15:58 80 18 160/86 H 100 06/29/24 15:11 79 17 100 06/29/24 14:10 77 06/29/24 13:59 88 17 173/109 H 100 06/29/24 13:44 36.6 C 84 16 180/106 H 97 O2 Del Method 06/29/24 15:59 06/29/24 15:58 Room Air 06/29/24 15:11 Room Air 06/29/24 14:10 06/29/24 13:59 Room Air 06/29/24 13:44 Room Air Laboratory Results Short CBC 06/29/24 Range/Units 14:23 WBC 8.27 (4.8-10.8) K/ul Hgb 14.0 (12.0-16.0) g/dl Hct 40.8 (37.0-47.0) % Plt Count 264 (130-400) K/uL BMP 06/29/24 14:23 Sodium 136 Potassium 3.7 Chloride 103 Carbon Dioxide 26 BUN 14 Creatinine 0.75 Glucose 99 Calcium 9.5 Liver Function 06/29/24 Range/Units 14:23 Total Bilirubin 1.4 H (0.2-1.0) mg/dl AST 13 (13-39) U/L ALT 10 (7-52) U/L Alkaline Phosphatase 37 (34-104) U/L Albumin 4.5 (3.4-5.0) gm/dl Urine 06/29/24 Range/Units 14:23 Urine Color Yellow Urine Appearance Clear (Clear) Urine pH 5.5 (4.5-7.5) Ur Specific [place] 1.009 (1.000-1.030) Urine Protein Negative (Negative) Urine Glucose (UA) Negative (Negative) Diagnostic Findings Chest CTA 06/29/24 14:07 CT ANGIOGRAPHY OF THE CHEST DISSECTION PROTOCOL CLINICAL HISTORY: Chest pain, SOB, HTN COMPARISON STUDY: No previous studies for comparison. TECHNIQUE: Before and following the IV administration of 115 mL of Optiray, helical axial images of the chest were obtained. Maximal intensity projections and sagittal and coronal reformats were viewed on an independent 3D workstation. IV contrast was administered without complication. Automated exposure control was utilized for the study. A dose lowering technique was utilized adhering to the principles of ALARA. CT DOSE: 1554.94 mGy.cm FINDINGS: Caliber of the thoracic aorta is normal. There is no thoracic aortic dissection or intramural hematoma. Size of the heart is normal. There are no pulmonary emboli. There is no pericardial effusion. No enlarged axillary, mediastinal or hilar lymph nodes are present. There is no pneumothorax or pleural effusion. There is no consolidation to suggest pneumonia. Numerous small noncalcified solid pulmonary nodules measure up to 3 mm. The largest is within the right upper lobe on image 53 of 253. Subpleural biapical densities represents scarring. Visualized portions of the upper abdomen are unremarkable. IMPRESSION: 1. No thoracic aortic dissection. 2. No acute intrathoracic findings. 3. Multiple small pulmonary nodules measuring up to 3 mm. These are likely benign. A chest CT in 6 months to ensure stability is recommended. ACT 112: Negative or not required by law. Electronically signed by: Boris Castellanos M.D. 06/29/2024 3:[address] 06/29/24 14:07 CT head/brain wo con CLINICAL HISTORY: Headache, dizziness, HTN, vision change R. TECHNIQUE: Multiple axial CT images of the head were obtained without contrast. Sagittal and coronal reconstructions were done. A dose lowering technique was utilized adhering to the principles of ALARA. CT DOSE: 1554.94mGy*cm COMPARISON: None FINDINGS: There is no intra-axial or extra-axial fluid collection, hemorrhage, or mass. The ventricles and sulci are age-appropriate with no midline shift. There is no evidence of a territorial infarction. The bone windows are negative. IMPRESSION: Negative noncontrasted CT ACT 112: Negative or not required by law. The above report was generated using voice recognition software. It may contain grammatical, syntax or spelling errors. Electronically signed by: Donna Andujar M.D. 06/29/2024 2:59 PM Head CTA 06/29/24 14:07 CTA ANGIOGRAPHY OF THE HEAD CLINICAL HISTORY: Headache, dizziness, HTN, vision change R COMPARISON STUDY: No previous studies for comparison. TECHNIQUE: Helical axial images of the head were obtained following uneventful intravenous administration of 115 cc of Optiray. Sagittal and coronal reconstructions were viewed as well as maximal intensity projections on an independent 3-D workstation. Automated exposure control was utilized for the study. A dose lowering technique was utilized adhering to the principles of ALARA. FINDINGS: No acute intracranial hemorrhage, midline shift or mass effect is present. Ventricular system is normal. Basal cisterns are patent. There are no extra-axial collections. The bilateral M1, M2, A1 and A2 segments are patent. No intracranial aneurysm is identified. The posterior circulation is intact. The left vertebral artery is dominant. The basilar artery and bilateral posterior cerebral arteries are patent. IMPRESSION: Unremarkable CTA of the head. ACT 112: Negative or not required by law. Electronically signed by: Boris Castellanos M.D. 06/29/2024 3:06 PM Neck CTA 06/29/24 14:07 CT ANGIOGRAPHY OF THE NECK WITH CONTRAST CLINICAL HISTORY: Headache, dizziness, HTN, vision change R COMPARISON STUDY: No previous studies for comparison. Technique: CT angiography of the carotid and vertebral arteries was obtained using Optiray and 3D reconstruction on an independent workstation. NASCET criteria was utilized. Automated exposure control was utilized for the study. A dose lowering technique was utilized adhering to the principles of ALARA. Findings: Chest CT will be reported separately. The bilateral common carotid, cervical internal carotid and vertebral arteries are patent. There is no stenosis, aneurysm or dissection within the neck. There is mild calcified plaque within the proximal left internal carotid artery without stenosis. There are several small thyroid nodules. There is no cervical lymphadenopathy. There are no cervical spine fractures. IMPRESSION: No stenosis or dissection within the bilateral common carotid, cervical internal carotid or vertebral arteries. ACT 112: Negative or not required by law. Electronically signed by: Boris Castellanos M.D. 06/29/2024 3:02 PM Medications Administered Home Medications Medication Instructions Recorded Confirmed Last Taken multivitamin 1 tab PO DAILY 12/28/23 06/29/24 03/03/24 prazosin 2 mg capsule 2 mg PO HS 12/28/23 06/29/24 03/21/24 escitalopram oxalate 10 mg tablet 10 mg PO HS 03/22/24 06/29/24 03/21/24 (Lexapro) oseltamivir 75 mg capsule 75 mg PO DAILY 06/29/24 06/29/24 Unknown
[2024-06-29] MEDS: METOPROLOL SUCC 25MG EXT REL TAB PO SCH (17:49)
[2024-06-29] MEDS: lisinopril 2.5 MG TAB PO STA (17:51)
[2024-06-29] MEDS ORDERED: ONDANSETRON INJ 2 MG/ML 2 ML VIAL IV PRN (18:47)
[2024-06-29] MEDS ORDERED: NITROGLYCERIN SL 0.4 MG/TAB TAB SL PRN (18:47)
[2024-06-29] MEDS ORDERED: LABETALOL HCL IV 5 MG/ML 20ML IV PRN (18:47)
[2024-06-29] MEDS ORDERED: ACETAMINOPHEN 325 MG TAB PO PRN (18:47)
[2024-06-29] MEDS ORDERED: ALUMINUM/MAGNESIUM SUSP 30 ML UDC PO PRN (18:47)
[2024-06-29] MEDS: PRAZOSIN HCL 1 MG CAP PO SCH (20:38)
[2024-06-29] MEDS: cefTRIAXone SODIUM 1,000 MG/50 ML BAG IV SCH (20:38)
[2024-06-29] MEDS: ESCITALOPRAM OXALATE 10 MG TAB PO SCH (20:39)
[2024-06-30 03:26] VITALS: TEMP 98.2
--- NOTE | 2024-06-30 05:56 | Electrocardiogram Report ---
Test Reason : Blood Pressure : */* mmHG Vent. Rate : 67 BPM Atrial Rate : 67 BPM P-R Int : 178 ms QRS Dur : 132 ms QT Int : 434 ms P-R-T Axes : 59 -6 115 degrees QTcB Int : 458 ms Normal sinus rhythm Left bundle branch block Abnormal ECG No previous ECGs available Confirmed by Emanuel Garay ([id number]) on 06/30/2024 5:55:45 AM Referred By: Confirmed By: Emanuel Garay
[2024-06-30 07:34] LABS: Hematocrit (blood only) 38.7 % (37.0-47.0); Hemoglobin 13.2 g/dl (12.0-16.0); Mean Corpuscular Hemoglobin 29.6 pg (25.0-34.0); Mean Corpuscular Hgb Conc 34.1 g/dL (32.0-36.0); Mean Corpuscular Volume 86.8 fL (80.0-100.0); Mean Platelet Volume 9.9 fL (9.4-12.4); Platelet Count 250 K/uL (130-400); RDW Coefficient of Variation 12.9 % (11.5-14.5); Red Blood Count 4.46 M/uL (4.20-5.40); White Blood Count 6.68 K/ul (4.8-10.8)
[2024-06-30 07:36] VITALS: RESP 18
[2024-06-30 07:51] LABS: BUN Creatinine Ratio 15.6 (10-20); Calcium 8.7 mg/dl (8.6-10.3); Chol HDL Ratio 3.1 (0-5); Creatinine Clr Calc Pharmacy 79.7 ml/min; Magnesium 2.3 mg/dl (1.7-2.4); Phosphorus 4.1 mg/dl (2.5-4.9); Potassium 4.1 mmol/L (3.5-5.1)
[2024-06-30] MEDS: ENOXAPARIN INJ 40 MG/0.4 ML SYR SQ SCH (07:54)
[2024-06-30] MEDS: lisinopril 2.5 MG TAB PO SCH (07:55)
[2024-06-30] MEDS ORDERED: lisinopril 5 MG TAB PO SCH (09:00)
[2024-06-30 09:56] LABS: Estimated Average Glucose 88 mg/dl; Hemoglobin A1C 4.7 % (4.5-5.6)
[2024-06-30 11:05] VITALS: BP 112/73; PULSE 73; O2SAT 99
--- NOTE | 2024-06-30 12:17 | Discharge Summary ---
Discharge Summary Date of Service June 30, 2024 Principal Dx & Hospital Course #1 = Principal Diagnosis (1) Hypertensive urgency: (2) Anxiety: Plan Ms. Nichols is a 43 year old woman with past medical history remarkable for anxiety, PTSD, MTHFR presented to [facility] ED due to severe headache and nosebleed this am and admitted for hypertensive urgency. Patient with LBBB and elevated systolics to 180s and diastolics to 110. Review of trends noted BP in 140-160s. ECHO with developing concentric LVH, septal motion consistent with conduction delay, and stable ef of 55-60%. Patient's blood pressures were much improved with the initiation of low dose lisinopril and metoprolol. Patient with no further dypsnea, chest tightness, or other acute concerns. Patient to follow up with PCP with planned OP Cardiology referral. Patient denies any acute concerns, ambulatory and eating well on day of discharge. #Hypertensive Urgency *resolved #LBBB #Atypical chest pain *resolved CTA head/neck/chest without dissection HCG negative, TSH wNL No signs of end organ damage at this time s/p Labetolol x 1 Order lisinopril 2.5mg now with 12.5 metoprolol now Continue lisinopril 5mg in am with 12.5 metoprolol XL ECHO stable EF, LVH and conduction delay Trop negative x 3, repeat one more for completeness #Acute cystitis UA nitrite + bacteria 4+ complete course with 3 days macrobid #Anxitey #PTSD resume home meds Notes For Next Care Provider OP Cardiology Referral for LBBB Medication Changes From Visit Lisinopril 2.5mg daily Metoprolol XL 12.5mg daily Admission HPI Per Admitting Provider Ms. Nichols is a 43 year old woman with past medical history remarkable for anxiety, PTSD, MTHFR gene presented to [facility] ED due to severe headache and nosebleed this am. Patient reports being in usual state of health until this morning when she felt a diffuse headache. She noted blood on her face from a nose bleed as well. She states that she went to work regardless--during her day she noted the headache return and a colleague took her blood pressure multiple times, ranging from 160s-180s, prompting patient to present to ED. She states that she had high blood pressure episodes years ago given interpersonal stressors, but she reports she is very active and without any extreme stressors at this time. She even states that during a recent procedure her pressures were normal. Review of those records note that her BP was in the 140s. She states at this time the headache and dizziness have resolved, but she is experiencing dyspnea at this time. Patient reports no tobacco history, no significant etoh, or other illicit substance use. She uses Mirena for her cycle, which helps her menstrual headaches, noting that this headache was different intensity and character. Patient reports maternal/paternal grandmothers with HTN and [place] hx, as well as mother with HTN as well. In the ED, vitals were notable for BP of 180/106, HR of 70-80s, and O2 sat of room air. Imaging revealed CTA with out dissection/bleed in head/neck, and no aortic dissection in CT; however, multiple pulm nodules noted EKG with LBBB ED interventions: 1L, 1gm Tylenol, Labetolol 10mg IV x 1 Patient to be admitted to PCU/tele for further evaluation and management of hypertensive urgency Admission Exam Per Admitting Provider GENERAL APPEARANCE: AxOx4, generally well-appearing F, no acute distress. HEENT: NC, AT. MMM. EOMI, clear conjunctiva, oropharynx clear. NECK: Supple without lymphadenopathy. No stiffness or restricted ROM. HEART: Normal rate and regular rhythm, normal S1/S1,?systolic murmur 1+ LUNGS: CTAB, moving air well. No crackles or wheezes are heard. ABDOMEN: Soft, nontender, nondistended with good bowel sounds heard. BACK: No CVAT, no obvious deformity. EXTREMITIES: Without cyanosis, clubbing or edema. NEUROLOGICAL: Grossly nonfocal. Alert and oriented, moving all 4 extremities. CN not formally tested but appear grossly intact. Skin: Warm and dry without any rash. Discharge Exam Constitutional WD/WN, vitals as above Respiratory normal respiratory effort, lungs clear to auscultation Cardiovascular RRR, no murmur, no edema Gastrointestinal (Abdomen) normal bowel sounds, soft, nontender, no hepatosplenomegaly Musculoskeletal no cyanosis or clubbing, extremities motor strength 5/5 Updated Medication List Medication Instructions Recorded Confirmed Type multivitamin 1 tab PO DAILY 12/28/23 06/29/24 History prazosin 2 mg capsule 2 mg PO HS 12/28/23 06/29/24 History escitalopram oxalate 10 mg tablet 10 mg PO HS 03/22/24 06/29/24 History (Lexapro) lisinopril 2.5 mg tablet 2.5 mg PO QAM 3 days #3 tabs 06/30/24 Rx metoprolol succinate 25 mg 12.5 mg (1/2 x 25 mg) PO QAM 30 06/30/24 Rx tablet,extended release 24 hr days #15 tabs nitrofurantoin 100 mg PO BID 3 days #6 caps 06/30/24 Rx monohydrate/macrocrystals 100 mg capsule (Macrobid) Hospital Stay Data Consultations 06/29/24 16:55 ED Decision to Admit Stat Diagnostic Imagining Performed 06/29/24 14:07 CT angio chest dissec wo/w con Stat CT head/brain wo con Stat CTA head w con [CT angio head w con] Stat CTA neck with con [CT angio neck with con] Stat Pending Results Patient Have Any Pending Studies at Discharge: No Discharge Instructions Given to Patient (Per Discharging Provider) You were admitted due to headache and noted to have high blood pressure up with systolics up to 180s. Your EKG was noted to be abnormal with something called a Left Bundle Branch Block. Your echo reports good heart function, but with thickening of the heart muscle noted and movement changes consistent with the left bundle branch block noted above. You were started on low dose metoprolol XL and lisinopril. These will help control your blood pressure. Please follow up with your PCP and discuss referral to Cardiology as an outpatient. Total Time Total Time Spent Total Time Spent (In Minutes): 45
--- NOTE | 2024-06-30 22:47 | Electrocardiogram Report ---
Test Reason : Blood Pressure : */* mmHG Vent. Rate : 67 BPM Atrial Rate : 67 BPM P-R Int : 180 ms QRS Dur : 132 ms QT Int : 460 ms P-R-T Axes : 69 2 96 degrees QTcB Int : 486 ms Normal sinus rhythm Left bundle branch block Abnormal ECG When compared with ECG of 29-Jun-2024 13:56, No significant change was found Confirmed by Emanuel Garay ([id number]) on 06/30/2024 10:47:13 PM Referred By: Confirmed By: Emanuel Garay
--- NOTE | 2024-06-30 22:47 | Electrocardiogram Report ---
Test Reason : Blood Pressure : */* mmHG Vent. Rate : 68 BPM Atrial Rate : 68 BPM P-R Int : 208 ms QRS Dur : 130 ms QT Int : 450 ms P-R-T Axes : 62 -1 105 degrees QTcB Int : 478 ms Normal sinus rhythm Left bundle branch block Abnormal ECG When compared with ECG of 29-Jun-2024 14:50, No significant change was found Confirmed by Emanuel Garay ([id number]) on 06/30/2024 10:47:22 PM Referred By: Jae London Confirmed By: Emanuel Garay
--- NOTE | 2024-06-30 22:48 | Electrocardiogram Report ---
Test Reason : Blood Pressure : */* mmHG Vent. Rate : 71 BPM Atrial Rate : 71 BPM P-R Int : 196 ms QRS Dur : 126 ms QT Int : 436 ms P-R-T Axes : 59 -1 124 degrees QTcB Int : 473 ms Normal sinus rhythm Left bundle branch block Abnormal ECG When compared with ECG of 29-Jun-2024 16:47, No significant change Confirmed by Emanuel Garay ([id number]) on 06/30/2024 10:48:00 PM Referred By: Jae London Confirmed By: Emanuel Garay
== END 2024-06-30 13:18 | disposition home or self-care (01) ==
LOC: SUATTDRO → ED 13:37 → 2S 13:37